=== PATIENT | female | born 1970 | race African-American/Black ===

== ENCOUNTER 2019-05-19 05:44 | Inpatient (IN) ==
[2019-05-19] MEDS ORDERED: VANCOMYCIN 1 GM/NS 1 GM/250 ML IVPB IV ONE ×2 (06:13→11:00)
--- NOTE | 2019-05-19 06:14 | PROVIDER DOCUMENTATION ---
HPI-General Adult - General Chief Complaint: Sores/Lesions Stated Complaint: SPIDER BITE ON FOOT Time Seen by Provider: 05/19/19 05:58 Source: patient Allergies/Adverse Reactions: Patient Allergies Allergy/AdvReac Type Severity Reaction Status Date / Time No Known Allergies Allergy Verified 05/19/19 05:54 - History of Present Illness -Gen Adult Nature of Presenting Problems: Presents to the with complaints of possible spider bite. She states that she noticed it yesterday and does not remember anything happening to her. She states she put her shoe on and thinks there might have been something in her shoe. She states that she tried putting Vicks vaporub on it but it did not help. Her PCP is in [place] and she has now moved here permanently. She denies any fevers. She does not think she has a history of DM. Location of Pain/Injury: reports: feet Review of Systems - Adult - REVIEW OF SYSTEMS - ADULT Constitutional: reports: no symptoms reported. denies: chills, fever Eyes: reports: no symptoms reported Ears, Nose, Mouth & Throat: reports: no symptoms reported Cardiovascular: reports: no symptoms reported Respiratory: reports: no symptoms reported Gastrointestinal: reports: no symptoms reported Genitourinary: reports: no symptoms reported Musculoskeletal: reports: no symptoms reported Integumentary: reports: see HPI, other Neurological: reports: no symptoms reported Psychiatric: reports: no symptoms reported Endocrine: reports: no symptoms reported Hematologic/Lymphatic: reports: no symptoms reported Allergic/Immunologic: reports: no symptoms reported All Other Systems: Reviewed and Negative Past History - Adult - PAST MEDICAL HISTORY-ADULT Review of Records: reports: Old Records Reviewed (none in EMR) Cardiovascular: reports: HTN Physical Exam-General - PHYSICAL EXAM-ADULT Initial Vital Signs Reviewed: Yes - CONSTITUTIONAL General Appearance: appears well, alert, no apparent distress - EYES Eyes: PERRL/EOMI - HEAD, EARS, NOSE, MOUTH & THROAT HENMT: normocephalic/atraumatic, moist mucous membranes - NECK Neck: non-tender, full range of motion, supple - RESPIRATORY Respiratory: chest non-tender, lungs clear, normal breath sounds - CARDIOVASCULAR Cardiovascular: normal peripheral pulses, regular rate, rhythm - GASTROINTESTINAL (ABDOMEN) Abdominal Exam: normal bowel sounds, non tender, soft - MUSCULOSKELETAL Back Exam: normal inspection Extremity: normal gait - SKIN Integumentary: swelling (left dorsum of foot with cellulitis tracking up to ankle and pus drainage), tenderness, warm - NEUROLOGIC Neurologic: grossly normal - PSYCHIATRIC Psych/Mental Status: normal mood/affect, oriented x 3 Progress - PLAN OF CARE/RESULTS Progress/Plan/Lab Results: Vital Signs - 8 hr 05/19/19 05:47 Temperature 98.7 F Pulse Rate 100 H Respiratory Rate 16 Blood Pressure 185/130 O2 Sat by Pulse Oximetry 100 Orders Category Date Time Status BLOOD CULTURE [BLDCUL] Stat Lab 05/19/19 06:13 Uncollected CBC WITH ELECTRONIC DIFF [HEME] Stat Lab 05/19/19 06:12 Uncollected COMPREHENSIVE METABOLIC PANEL [CHEM] Stat Lab 05/19/19 06:13 Uncollected LACTATE, PLASMA [CHEM] Stat Lab 05/19/19 06:13 Uncollected Vancomycin 1 gm IV Now Med 05/19/19 06:13 Ordered Vancomycin 1 gm/Ns 1 gm in 250 ml IV NOW Result Diagrams: 05/19/19 06:25 05/19/19 06:25 - CONSULTS/PCP/HOSPITALIST Notification #1 *Consult/PCP/Hospitalist*: Maria Elena, with Hospitalists Time Discussed: 08:15 Consult Disposition: Will see in ED, Admit Departure - Departure Date of Disposition Decision: 05/19/19 Time of Disposition Decision: 08:15 DIAGNOSIS: Cellulitis Qualifiers: Site of cellulitis: extremity Site of cellulitis of extremity: lower extremity Laterality: left Qualified Code(s): L03.116 - Cellulitis of left lower limb Disposition: ADMITTED INPATIENT 09 Certified Medical Emergency: Emergent Condition: Stable Referrals and Follow-Ups: None,PCP [Primary Care Provider] - - Critical Care Note This patient required my direct & personal management of CC.: No Attestation - Physician/ ALEXANDRA Attestation Patient care was provided by Advanced Practice Provider:: No The physician spent face to face time with patient:: Yes Advanced Practice Provider documentation review:: Supervising physician onsite and consulted in the evaluation and care of this patient. The physician did have a face to face encounter with the patient.
[2019-05-19 06:50] LABS: BASO# 0.05 X1000 (0.0-0.2); BASO% 0.4 % (0.0-0.8); EOS# 0.14 X1000 (0.0-0.7); HEMATOCRIT 37.7 % (37.0-47.0); HEMOGLOBIN 13.2 g/dL (12.0-16.0); IMM GRAN# 0.05 X1000 (0.0-0.04); IMM GRAN% 0.4 % (0.0-0.5); LYMPH# 3.73 X1000 (1.2-3.4); LYMPH% 26.9 % (20.5-51.1); MCV 71.3 FL (81-99); MONO# 1.08 X1000 (0.11-0.59); MONO% 7.8 % (1.7-9.3); MPV 10.8 FL (7.4-10.4); NEUT# 8.81 X1000 (1.4-6.5); NEUT% 63.5 % (42.2-75.2); PLT 205 X1000 (130-400); RBC 5.29 XMIL (4.2-5.4); RDW 14.6 % (11.5-14.5); WBC 13.86 X1000 (4.8-10.8)
[2019-05-19 07:16] LABS: AGAP 9; ALB/GLOB RATIO 1.3; ALBUMIN 3.9 g/dL (3.5-5.0); ALKALINE PHOSPHATASE 99 U/L (32-104); BUN 18 mg/dL (8-22); CALCIUM 8.9 mg/dL (8.8-10.2); CHLORIDE 105 mmol/L (98-107); COSMO 277; CREATININE 0.7 mg/dL (0.5-0.9); ESTIMATED GFR > 60; GLUCOSE 88 mg/dL (70-104); GOT 13 U/L (10-30); GPT 14 U/L (10-36); SODIUM 138 mmol/L (136-145); TCO2 24 mmol/L (25-35); TOTAL BILIRUBIN < 0.15 mg/dL (0.20-1.00); TOTAL PROTEIN 6.9 g/dL (6.3-8.3)
--- NOTE | 2019-05-19 07:32 | Diag Imaging Result Doc PS360 ---
EXAM: CHEST-1 VIEW INDICATION: sepsis protocol TECHNIQUE: One view COMPARISON: None. FINDINGS: There is vague increased opacity at the right lung base. Developing infiltrate cannot be excluded. The lungs are grossly clear, otherwise. There is no discrete pleural fluid collection or pneumothorax. The cardiomediastinal silhouette and central vasculature are grossly unremarkable. IMPRESSION: Mild increased opacity at the right lung base. Developing infiltrate cannot be excluded. Please correlate clinically and follow-up if necessary. Electronically signed by Jose Pope 05/19/2019 7:29 AM
[2019-05-19 07:54] LABS: URINE SOURCE CLEAN CATCH
[2019-05-19 08:00] LABS: BILIRUBIN URINE NEGATIVE (NEGATIVE); BLOOD URINE TRACE (NEGATIVE); COLOR YELLOW; GLUCOSE URINE NEGATIVE (NEGATIVE); KETONE URINE NEGATIVE (NEGATIVE); LEUKOCYTES URINE SMALL (NEGATIVE); NITRITE URINE NEGATIVE (NEGATIVE); PROTEIN URINE NEGATIVE (NEGATIVE); SP GRAVITY URINE 1.023; TURBIDITY URINE CLEAR (CLEAR); UROBILINOGEN URINE NORMAL (NORMAL)
[2019-05-19 08:01] LABS: UR EPITHELIAL CELLS <10 /HPF (<10); URINE BACTERIA 2+ /HPF; URINE RBC <10 /HPF (<10); URINE WBC <10 /HPF (<10)
[2019-05-19] MEDS ORDERED: ZOFRAN IV PRN (10:04)
[2019-05-19] MEDS ORDERED: VANCOMYCIN IV PER PHARMACY MISC SCH (10:04)
--- NOTE | 2019-05-19 10:24 | HISTORY AND PHYSICAL ---
HISTORY: This is a 48-year-old who just recently moved from [place], [place], to [place]. She reported that she had put her shoe on a couple of days ago and noticed a painful pricking pain in her left foot and then subsequently she had some swelling and she has kind of a honeycombing cellulitis around the metatarsals in the left foot, the thickest part between toe 4 and 5. She has good capillary refill. The foot is nice and warm. It is tender to touch, and she has general circumferential swelling mostly on the top of her foot. I do not appreciate lymph nodes in the popliteal or femoral in the leg on that side. She came to the ER concerning about the appearance and the pain. I do not see any fluctuance or sign of subcutaneous abscess. PAST MEDICAL HISTORY: Unremarkable except for hypertension. SURGERY: She has had a section. ALLERGIES: No known drug allergies. FAMILY HISTORY: There is family history of cancer, specifically colon cancer. SOCIAL HISTORY: She has 1 daughter. I think she told me she has 3 grandchildren. She lives with her mother right now. She quit smoking a year ago, prior to that she smoked about 3 cigarettes a day. No alcohol and no illicit drugs. REVIEW OF SYSTEMS: She does not report change in weight or diet. No fevers or chills. HEENT: No complaints of change in vision or hearing acuity or headache. No neck pain. No cervical adenopathy. Respiratory: No increased work of breathing or dyspnea. Cardiovascular: No chest pain or tachy palpitations. GI/: Does not report any change in bowels or urination. Endocrinologic/Hematologic: No significant history. PHYSICAL EXAMINATION: VITAL SIGNS: Temperature 97.6; pulse 70; respirations 20; blood pressure 159/107. HEENT: Pupils are equal and round. NECK: No distended neck veins. LUNGS: Clear in all lung king. CARDIOVASCULAR: Regular rhythm and rate without murmur or S3. ABDOMEN: Soft. SKIN: Warm and dry. EXTREMITIES: Left foot with crusting exudate, honeycomb appearance. No definite punctate wound that I can see. The area is about 6 cm with a reticular kind of pattern. LABS: White count 13,860, hematocrit 37, platelet count 205,000, sodium 138, potassium 4.0, chloride 105, BUN 18, creatinine 0.7, calcium 8.9, AST 13, ALT 14, alkaline phosphate 99. Urinalysis unremarkable. There is 2+ bacteria. Chest x-ray mild increased opacity in the right lung base. Developing infiltrate cannot be excluded. ASSESSMENT AND PLAN: Cellulitis honeycombing. Suspect Staph infection superficial. Not sure what the insect bite was. Will get wound care to help Karlie . It looks like there is an appearance also of contact irrigation or contact dermatitis. She was putting, I think, Vicks vapor rub on the foot. Will elevate the foot and give her broad spectrum antibiotics and will cover for gram-negative as well for right now for the first 24 hours and give her vancomycin to cover gram-positive Strep and Staph. Will give her some fluids normal saline 75 mL an hour. I think we should check her T4, TSH, B12 and folate. We will obtain blood cultures if they have not already been drawn. cc: Pardeep Ingram MD MTDD
[2019-05-19 10:33] LABS: INR 0.91
[2019-05-19 10:34] LABS: PTT 22.7 Seconds (22.3-41.8)
[2019-05-19] MEDS: ZOSYN 3.375 GM in NS 50 ML IV SCH ×3 (11:17→22:14)
[2019-05-19] MEDS: NS 1,000 ML IV SCH (11:18)
[2019-05-19 11:47] LABS: FREE T4 0.88 ng/dL (0.93-1.70); TSH 0.95 uIUmL (0.27-4.20)
[2019-05-19] MEDS: TYLENOL PO PRN (18:40)
[2019-05-19] MEDS: VANCOMYCIN 1,750 MG in NS 250 ML IV SCH (22:15)
[2019-05-20] MEDS: TYLENOL PO PRN ×3 (03:18→21:30)
[2019-05-20] MEDS: ZOSYN 3.375 GM in NS 50 ML IV SCH ×4 (03:22→21:30)
[2019-05-20 07:03] LABS: BASO# 0.03 X1000 (0.0-0.2); BASO% 0.3 % (0.0-0.8); EOS# 0.15 X1000 (0.0-0.7); EOS% 1.7 % (0.0-10.0); HEMOGLOBIN 12.9 g/dL (12.0-16.0); IMM GRAN# 0.03 X1000 (0.0-0.04); IMM GRAN% 0.3 % (0.0-0.5); LYMPH# 2.46 X1000 (1.2-3.4); LYMPH% 27.3 % (20.5-51.1); MCH 24.9 PG (27-31); MCHC 34.9 g/dL (33-37); MCV 71.3 FL (81-99); MONO# 0.79 X1000 (0.11-0.59); MONO% 8.8 % (1.7-9.3); MPV 11.1 FL (7.4-10.4); NEUT# 5.55 X1000 (1.4-6.5); NEUT% 61.6 % (42.2-75.2); PLT 203 X1000 (130-400); RBC 5.19 XMIL (4.2-5.4); RDW 14.5 % (11.5-14.5); WBC 9.01 X1000 (4.8-10.8)
[2019-05-20 07:27] LABS: AGAP 7; BUN 9 mg/dL (8-22); CALCIUM 8.7 mg/dL (8.8-10.2); CHLORIDE 104 mmol/L (98-107); COSMO 275; CREATININE 0.5 mg/dL (0.5-0.9); ESTIMATED GFR > 60; GLUCOSE 77 mg/dL (70-104); POTASSIUM 4.2 mmol/L (3.5-5.1); SODIUM 139 mmol/L (136-145); TCO2 28 mmol/L (25-35)
--- NOTE | 2019-05-20 07:45 | Diag Imaging Result Doc PS360 ---
CHEST-2 VIEWS - 05/20/2019 INDICATION: Cough COMPARISON: 05/19/2019 FINDINGS: The right lung base appears more clear on today's exam. The lungs are clear. Heart size is normal. No pneumothorax or pleural effusion. IMPRESSION: No acute disease. Electronically signed by Antony De Diso 05/20/2019 7:43 AM
[2019-05-20] MEDS: NS 1,000 ML IV SCH ×2 (09:35→21:31)
[2019-05-20] MEDS: VANCOMYCIN 1,750 MG in NS 250 ML IV SCH ×2 (10:42→23:16)
--- NOTE | 2019-05-20 13:16 | PROGRESS NOTE ---
DATE: 05/20/2019 SUBJECTIVE: Ms. Reyes is feeling better and her foot looks much better. It has dried up. Less swelling. She remains afebrile. OBJECTIVE: Temperature 98.2 degrees, pulse 67, respirations 18, blood pressure 137/89. Pupils are equal and round. Lungs are clear in all lung king. Cardiovascular Examination: Regular rhythm and rate without murmur or S3. Abdomen is soft. Skin is warm and dry. Urine output 2200 mL. Chest x-ray from this morning, no acute disease. Right lung base appears more clear on this exam. ASSESSMENT AND PLAN: Cellulitis, superficial. Suspect insect bite. Her white count was 13,000. It is down to 9000. Foot looks much better. I think I am going to plan on giving her another 24 hours of antibiotics. She will probably get to go home tomorrow. cc: Pardeep Ingram MD
[2019-05-20] MEDS: HYDROCHLOROTHIAZIDE PO SCH (14:03)
[2019-05-20] MEDS: PRINIVIL PO SCH (14:03)
[2019-05-21] MEDS: VANCOMYCIN 2,000 MG in NS 500 ML IV SCH ×2 (00:21→10:58)
[2019-05-21] MEDS: TYLENOL PO PRN ×2 (03:27→12:52)
[2019-05-21] MEDS: ZOSYN 3.375 GM in NS 50 ML IV SCH ×2 (04:39→09:58)
[2019-05-21] MEDS: NS 1,000 ML IV SCH ×2 (08:43→14:40)
[2019-05-21] MEDS: PRINIVIL PO SCH (09:57)
[2019-05-21] MEDS: HYDROCHLOROTHIAZIDE PO SCH (09:57)
--- NOTE | 2019-05-21 10:19 | DISCHARGE SUMMARY ---
ADMISSION DATE: 05/19/2019 DISCHARGE DATE: 05/21/2019 HISTORY AND HOSPITAL COURSE: A 48-year-old, recently moved from [place], [place] to [place]. Reported that she put her shoe on a couple days ago and noticed painful pricking pain on the dorsum of her foot around the mid metatarsal and then noticed some swelling and developed some irritation, redness and honeycombing. Foot felt warm to touch. Good blood flow, good capillary refill. It looked like cellulitis and looked like it was probably most consistent with staph cellulitis. We put her on antibiotics. She had no allergies to antibiotics, and we had her on vancomycin and Zosyn. The swelling went down quickly. Have no culture data except for 1 out of 2 blood cultures coagulation-negative Staphylococcus. I am going to cover for methicillin-resistant Staph and we will put her on Bactrim Double Strength 1 twice a day for another 7 days. We will also put Bactroban ointment on and she can apply that on twice a day, and she is to elevate that foot and follow up with her primary care physician. cc: Pardeep Ingram MD
[2019-05-21 11:31] VITALS: BP 132/76
== END 2019-05-21 15:38 | disposition home or self-care (01) | DRG 603 ==
LOC: ED 05:44 → 3N 09:51
PROVIDERS: ATTEND Emergency Medicine
CPT/HCPCS: 71010; 71020; 71045; 71046; 80048; 80053; 80202; 81001; 82550; 82607; 82746; 83605; 83735; 84439; 84443; 84484; 85025; 85610; 85730; 87040; 87088; A9270; J2543; J3370; J7030; J7040; J7050